=== PATIENT | male | born 1980 | race Caucasian/White ===

== ENCOUNTER 2019-07-12 17:45 | Emergency (ER) | payer BC ==
[2019-07-12 18:07] VITALS: BP 128/84; PULSE 88; TEMP 99.2; BMI 41.8
[2019-07-12] MEDS ORDERED: CEPHALEXIN MONOHYDRATE 500 MG CAPSULE (UD) PO ONE (18:16)
--- NOTE | 2019-07-12 18:21 | PDOC ---
History of Present Illness - General Chief Complaint: Wound Stated Complaint: LEFT LEG WOUND Time Seen by Provider: 07/12/19 18:08 - History of Present Illness Initial Comments: 07/12/19 18:27 Chief complaint: Infection right medial calf History of present illness: Patient noticed discoloration, pain, and scab formation of the medial right calf several days ago. No known injury. Had cellulitis in the same area approximately 2 years ago which cleared quickly with antibiotics. Review of systems: No fevers/chills, distal numbness tingling limited range of motion pain or weakness of the ankle or foot. No chest pain, shortness of breath , abdominal pain, nausea, vomiting, diarrhea, unsteadiness of gait, visual or focal neurologic symptoms, urinary tract symptoms. Remainder systems reviewed and negative Past medical history: Morbid obesity, otherwise negative including diabetes, coronary artery disease. He suddenly started wearing support hose for swelling and edema. Social history: No tobacco alcohol or drugs. Works long hours standing on his feet. 3: Reviewed and noncontributory Physical exam: Alert and oriented severe obesity, no acute distress cheerful and cooperative Vital signs normal HEENT clear Neck supple without bruit mass or nodes Ein chest clear, full breath sounds bilaterally CV regular without murmur rub or gallop Abdomen soft nontender without mass or organomegaly Neurological intact Extremities: 5 mm shallow ulceration with crusting medial mid calf, right. Surrounding erythema and warmth approximately 1 cm. Mild tenderness. No posterior calf swelling or tenderness. Pulses full. No distal sensory or motor deficits. The entire calf is tense but does not differ in size or consistency with the left. Impression: Infected wound, venous stasis. And: Rest, stay off the legs, warm compresses, antibiotics. Patient has an appointment for evaluation of his venous stasis with Dr. Shin, vascular surgeon, next week. Follow-up as scheduled. Otherwise return to ER if worse despite rest and antibiotics. Fully ambulatory in no significant pain at discharge with his mother. Past History - Past Medical History Allergies/Adverse Reactions: Allergies Allergy/AdvReac Type Severity Reaction Status Date / Time No Known Allergies Allergy Verified 07/12/19 17:49 Home Medications: Ambulatory Orders Cephalexin Monohydrate [Keflex] 500 mg PO Q6H #30 capsule 07/12/19 COPD: No - Suicide/Smoking/Psychosocial Hx Smoking History: Current every day smoker Have you smoked in the past 12 months: Yes Number of Cigarettes Smoked Daily: 20 Information on smoking cessation initiated: Yes 'Breaking Loose' booklet given: 02/18/16 Hx Alcohol Use: Yes (social) *Physical Exam - Vital Signs Last Vital Signs Temp Pulse Resp BP Pulse Ox 99.2 F 88 20 128/84 95 07/12/19 17:45 07/12/19 17:45 07/12/19 17:45 07/12/19 17:45 07/12/19 17:45 *DC/Admit/Observation/Transfer Diagnosis at time of Disposition: Infected wound - Discharge Dispostion Disposition: HOME Condition at time of disposition: Stable Decision to Admit order: No - Prescriptions Prescriptions: Cephalexin Monohydrate [Keflex] 500 mg PO Q6H #30 capsule - Referrals Referrals: Alex Shin MD [Staff Physician] - - Patient Instructions Printed Discharge Instructions: DI for Wound Infection Additional Instructions: Rest, elevate, stay off your feet as much as possible for the next few days. Warm compresses. Antibiotics as directed. Follow-up as scheduled with vascular specialist. If leg worsens despite rest and antibiotics, return to ER for further evaluation. - Post Discharge Activity Forms/Work/School Notes: Back to Work
[2019-07-12] MEDS ORDERED: CEPHALEXIN MONOHYDRATE 500 MG CAPSULE (UD) ONE (18:23)
== END 2019-07-12 18:26 | disposition home or self-care (01) ==
LOC: FER 17:45
DX: L08.9 Local infection of the skin and subcutaneous tissue, unspecified (principal)
CPT/HCPCS: 99282-25

== ENCOUNTER 2020-12-12 16:49 | Emergency (ER) | payer BC ==
[2020-12-12 18:12] LABS: ALBUMIN 3.8 g/dl (3.4-5.0); BILIRUBIN,TOTAL 0.6 mg/dl (0.2-1); CALCIUM 8.5 mg/dl (8.5-10); CREATININE 0.8 mg/dl (0.55-1.3); POTASSIUM 4.6 mmol/L (3.5-5.1); TOT PROT 6.5 g/dl (6.4-8.2)
[2020-12-12 18:18] LABS: HEMATOCRIT 50.9 % (35.4-49); HEMOGLOBIN 16.1 GM/dl (11.7-16.9); MCH 23.4 pg (25.7-33.7); MCHC 31.7 g/dl (32.0-35.9); MEAN CELL VOLUME 73.9 fl (80-96); MEAN PLT VOLUME 8.3 fl (7.5-11.1); PLATELET COUNT 100 K/MM3 (134-434); RBC 6.89 M/mm3 (4.00-5.60); RDW 17.6 % (11.9-15.9); WHITE BLOOD COUNT 5.6 K/mm3 (4.0-10.8)
[2020-12-12 18:31] LABS: PLATELET ESTIMATE SLT DECREASE
[2020-12-12 18:44] LABS: N-TERMINAL BNP 113.4 pg/ml (5-125)
[2020-12-12 19:06] LABS: ANISOCYTOSIS 1+
[2020-12-12 19:27] VITALS: BP 112/81; PULSE 96; TEMP 98.4; BMI 55.7
== END 2020-12-12 19:03 | disposition home or self-care (01) ==
LOC: FER 16:49
DX: R60.9 Edema, unspecified (principal); I73.9 Peripheral vascular disease, unspecified; D69.6 Thrombocytopenia, unspecified
CPT/HCPCS: 36415; 71046-TC-FY; 80053; 83880; 85025; 93005; 99285-25